=== PATIENT | female | born 1945 | race Caucasian/White ===

== ENCOUNTER → 2016-08-26 | Outpatient (CLI) | payer MEDICARE, OTHER ==
--- NOTE | 2016-08-27 13:56 | MM ---
Reason for exam: screening (asymptomatic). Last mammogram was performed 1 year ago. History: Patient is postmenopausal and is nulliparous. Family history of breast cancer in paternal aunt at age 50 and breast cancer in maternal aunt at age 60. Benign right mammotome panel of the right breast, September 27, 2005. Benign stereotactic core biopsy of the left breast, November 25, 2003. Benign excisional biopsy of the right breast, May 31, 1997. Physical Findings: A clinical breast exam by your physician is recommended on an annual basis and results should be correlated with mammographic findings. MG 3D Screening Mammo W/Cad Bilateral CC and MLO view(s) were taken. Prior study comparison: August 24, 2015, bilateral MG 3d screening mammo w/cad. There are scattered fibroglandular densities. Finding: There are typically benign coarse, diffuse calcifications in both breasts. Previous mammotome biopsy in the right breast. No significant changes in finding since August 24, 2015. ASSESSMENT: Benign, BI-RAD 2 RECOMMENDATION: Routine screening mammogram of both breasts in 1 year.
== END | disposition home or self-care (01) ==
LOC: RADMAMWWP 15:15
PROVIDERS: ATTEND Obstetrics & Gynecology
DX: Z12.31 Encounter for screening mammogram for malignant neoplasm of breast (principal)
CPT/HCPCS: 77063; G0202

== ENCOUNTER → 2017-11-13 | Outpatient (CLI) | payer MEDICARE ==
--- NOTE | 2017-11-17 10:03 | MM ---
Reason for exam: screening (asymptomatic). Last mammogram was performed 1 year and 3 months ago. History: Patient is postmenopausal and is nulliparous. Family history of breast cancer in paternal aunt at age 50 and breast cancer in maternal aunt at age 60. Benign right mammotome panel of the right breast, September 27, 2005. Benign stereotactic core biopsy of the left breast, November 25, 2003. Benign excisional biopsy of the right breast, May 31, 1997. Physical Findings: A clinical breast exam by your physician is recommended on an annual basis and results should be correlated with mammographic findings. MG 3D Screening Mammo W/Cad Bilateral CC and MLO view(s) were taken. Technologist: RT Christi (R)(M) Prior study comparison: August 26, 2016, bilateral MG 3d screening mammo w/cad. August 24, 2015, bilateral MG 3d screening mammo w/cad. There are scattered fibroglandular densities. No significant changes when compared with prior studies. ASSESSMENT: Benign, BI-RAD 2 RECOMMENDATION: Routine screening mammogram of both breasts in 1 year.
== END | disposition home or self-care (01) ==
LOC: RADMAMWWP 11:03
PROVIDERS: ATTEND Obstetrics & Gynecology
DX: Z12.31 Encounter for screening mammogram for malignant neoplasm of breast (principal)
CPT/HCPCS: 77063; 77067

== ENCOUNTER → 2018-01-06 | Outpatient (CLI) | payer MEDICARE ==
--- NOTE | 2018-01-06 17:25 | BD ---
EXAMINATION TYPE: Axial Bone Density DATE OF EXAM: 01/06/2018 COMPARISON: 11.23.2015 CLINICAL HISTORY: 72YR OLD PATIENT....ICD-10 CODE: Z13.820 SCREENING, M89.9 OSTEOPENIA Height: 65.4 Weight: 583 FRAX RISK QUESTIONS: Family History (Parent hip fracture): NO FXs Glucocorticoids (More than 3mos): TOPICAL ONLY RISK FACTORS HISTORY OF: HX OF BROKEN TOES AND FEET > AGE 52 Family History of Osteoporosis: YES, SISTER Active: NO....DIFFICULTY WALKING Diet low in dairy products/other sources of calcium: NO Postmenopausal woman: YES, AT AGE 57 YRS OLD Lost more than 2 inches in height since high school: YES Frequent falls: UNSTEADY MEDICATIONS: Additional Medications: STEROIDAL CREAM, FOR FLARE UPS, STATIN FOR CHOLESTEROL, CALCIUM AND VIT D, Additional History: SKIN RASHES EXAM MEASUREMENTS: Bone mineral densitometry was performed using the [employer] System. Bone mineral density as measured about the Lumbar spine is: ----- L1-L4(G/cm2): 1.231 T Score Values are as follows: ----- L1: 0.7 ----- L2: 0.2 ----- L3: -0.7 ----- L4: 1.2 ----- L1-L4: 0.4 Bone mineral density has: Increased 5.9% since study of: 11.23.2015 Bone mineral density about the R hip (g/cm2): 0.927 Bone mineral density about the L hip (g/cm2): 0.859 T Score values are as follows: -----R Neck: -0.3 -----L Neck: -2.1 -----R Total: -0.6 -----L Total: -1.2 Bone mineral density has: Increased 2.4% since study of: 11.23.2015 FRAX%s: THERE IS A 16.5% CHANCE OF A MAJOR OSTEOPOROTIC FX AND A 3.1% FOR HIP FX......PROBABILI TY OF FX IN 10 YRS TIME IMPRESSION: Osteopenia (T Score between -2.5 and -1). There is slightly increased risk of fracture and the patient may be considered for treatment. Re-Screen 2-5 years. NOTE: T-SCORE=SD OF THE YOUNG ADULT MEAN.
== END | disposition home or self-care (01) ==
LOC: RADBDWWP 14:57
PROVIDERS: ATTEND Obstetrics & Gynecology
DX: Z13.820 Encounter for screening for osteoporosis (principal); M89.9 Disorder of bone, unspecified; M85.80 Other specified disorders of bone density and structure, unspecified site
CPT/HCPCS: 77080

== ENCOUNTER → 2018-12-08 | Outpatient (CLI) | payer MEDICARE ==
--- NOTE | 2018-12-09 14:49 | MM ---
Reason for exam: screening (asymptomatic). Last mammogram was performed 1 year and 1 month ago. History: Patient is postmenopausal and is nulliparous. Family history of breast cancer in paternal aunt at age 50 and breast cancer in maternal aunt at age 60. Benign right mammotome panel of the right breast, September 27, 2005. Benign stereotactic core biopsy of the left breast, November 25, 2003. Benign excisional biopsy of the right breast, May 31, 1997. MG 3D Screening Mammo W/Cad Bilateral CC and MLO view(s) were taken. Prior study comparison: November 13, 2017, bilateral MG 3d screening mammo w/cad. August 26, 2016, bilateral MG 3d screening mammo w/cad. The breast tissue is heterogeneously dense. This may lower the sensitivity of mammography. There are benign-appearing bilateral breast calcifications. No suspicious abnormality. No significant new finding when compared to prior studies. ASSESSMENT: Benign, BI-RAD 2 RECOMMENDATION: Routine screening mammogram of both breasts in 1 year.
== END | disposition home or self-care (01) ==
LOC: RADMAMWWP 11:17
PROVIDERS: ATTEND Obstetrics & Gynecology
DX: Z12.31 Encounter for screening mammogram for malignant neoplasm of breast (principal)
CPT/HCPCS: 77063; 77067

== ENCOUNTER 2019-04-27 07:54 | Day surgery (SDC) | payer MEDICARE ==
[2019-04-23 13:30] VITALS: BMI 44.4
[~2019-04-27 07:54] MED LIST: LACTATED RINGERS 1,000 ML IV SCH; LIDOCAINE 1% 20 ML VIAL (10MG/ML) FOR IV START INTRADERMA PRN
[2019-04-27 08:30] VITALS: RESP 20; TEMP 97.8
[2019-04-27] MEDS ORDERED: PROPOFOL 10 MG/ML 20 ML VIAL IV ONE (08:46)
[2019-04-27] MEDS ORDERED: LIDOCAINE 1% INJ 10MG/ML (20 ML MDV) ONE (08:46)
--- NOTE | 2019-04-27 08:54 | P.GSHP ---
History of Present Illness H&P Date: 04/27/19 Chief Complaint: GERD, dysphagia Cyst 73-year-old female who presents today for EGD. Patient issues with some dysphagia and GERD. Past Medical History Past Medical History: GERD/Reflux, Hyperlipidemia Additional Past Medical History / Comment(s): HX OF POLYPS, feel like something stuck in throat,arthritis,scolosis History of Any Multi-Drug Resistant Organisms: None Reported Past Surgical History: Breast Surgery, Joint Replacement, Orthopedic Surgery, Tonsillectomy Additional Past Surgical History / Comment(s): EYE SX AT AGE 8, BREAST BX X2, DOMENICA KNEE REPLACEMENT, LEFT FOOT FUSED, LEFT SHOULDER REVERSE REPLACEMENT, rt shoulder replacement, cataracts domenica Past Anesthesia/Blood Transfusion Reactions: No Reported Reaction Past Psychological History: No Psychological Hx Reported Smoking Status: Never smoker Past Alcohol Use History: Rare Past Drug Use History: None Reported - Past Family History Father Family Medical History: Deep Vein Thrombosis (DVT) Medications and Allergies Home Medications Medication Instructions Recorded Confirmed Type Aspirin 81 mg PO DAILY 12/06/14 04/23/19 History Multivit-Min/FA/Lycopene/Lut 1 tab PO DAILY 12/06/14 04/23/19 History [Centrum Silver Tablet] Simvastatin 10 mg PO DAILY 12/06/14 04/23/19 History Calcium Carbonate/Vitamin D3 1 each PO BID 01/14/18 04/23/19 History [Calcium 600-Vit D3 400 Caplet] Cholecalciferol [Vitamin D3] 1,000 unit PO DAILY 01/14/18 04/23/19 History Cranberry Fruit Concentrate 500 mg PO DAILY 01/14/18 04/23/19 History [Cranberry] Glucosamine Sulfate 1,500 mg PO DAILY 01/14/18 04/23/19 History Magnesium Oxide [Mag-Ox] 250 mg PO DAILY 01/14/18 04/23/19 History [place]-3/Dha/Epa/Fish Oil [Fish Oil 1 each PO BID 01/14/18 04/23/19 History EC 1,200 mg Softgel] Allergies Allergy/AdvReac Type Severity Reaction Status Date / Time adhesive Allergy Rash/Hives Verified 04/23/19 13:21 lanolin Allergy Rash/Hives Verified 04/23/19 13:21 neomycin Allergy Rash/Hives Verified 04/23/19 13:21 nickel Allergy POSITIVE Verified 04/23/19 13:21 ON ALLERGY TEST Penicillins Allergy Unknown Verified 04/23/19 13:21 Childhood Surgical - Exam Vital Signs Temp Pulse Resp BP Pulse Ox 97.8 F 109 H 20 144/82 93 L 04/27/19 08:20 04/27/19 08:20 04/27/19 08:20 04/27/19 08:20 04/27/19 08:20 - General well developed, well nourished, no distress - Eyes PERRL - ENT normal pinna - Neck no masses - Respiratory normal expansion - Cardiovascular Rhythm: regular - Abdomen Abdomen: soft, non tender Assessment and Plan Assessment: GERD, dysphagia. We'll perform EGD
--- NOTE | 2019-04-27 09:02 | P.OP ---
Date of Procedure: 04/27/19 Preoperative Diagnosis: GERD Dysphagia Postoperative Diagnosis: Duodenitis Antral gastritis Esophagitis No significant hiatal hernia Procedure(s) Performed: EGD Anesthesia: MAC Surgeon: Audie Shi Pathology: other (Antrum, esophagus, duodenum) Condition: stable Disposition: PACU Description of Procedure: Patient's placed on the endoscopy table in the lateral position. She received IV sedation. The gastroscope placed oropharynx passed in the esophagus and into the stomach. Scope was then placed through the pylorus. The first and second portion of the duodenum appeared inflamed. Several biopsies of duodenum were performed. Scope summer back the antrum this. Mildly inflamed. A biopsies performed. Scope was unretroflexed and remainder of the stomach appeared normal. There is no significant hiatal hernia. The GE junction was at 47 is. The distal esophagus appeared mildly inflamed a biopsies performed. The proximal esophagus appeared normal. Scope was withdrawn for patient.
[2019-04-27 09:31] VITALS: BP 109/54; PULSE 76
== END 2019-04-27 09:39 | disposition home or self-care (01) ==
LOC: ORWHC2ENDO 07:54
PROVIDERS: ATTEND Surgery
DX: K21.0 Gastro-esophageal reflux disease with esophagitis (principal); K29.50 Unspecified chronic gastritis without bleeding; K29.80 Duodenitis without bleeding; E78.5 Hyperlipidemia, unspecified; Z86.010 Personal history of colon polyps; M19.90 Unspecified osteoarthritis, unspecified site; Z98.890 Other specified postprocedural states; Z90.89 Acquired absence of other organs; Z96.653 Presence of artificial knee joint, bilateral; Z79.82 Long term (current) use of aspirin; Z79.899 Other long term (current) drug therapy; Z91.048 Other nonmedicinal substance allergy status; Z88.8 Allergy status to other drugs, medicaments and biological substances; Z88.0 Allergy status to penicillin; Z88.1 Allergy status to other antibiotic agents
CPT/HCPCS: 88305; 88342; 43239; J2001; J2704

== ENCOUNTER 2019-10-28 06:30 | Day surgery (SDC) | payer MEDICARE ==
[2019-10-25 15:57] VITALS: BMI 43.0
[~2019-10-28 06:30] MED LIST changes: +LIDOCAINE 1% (10MG/ML) FOR IV START INTRADERMA PRN; -LIDOCAINE 1% 20 ML VIAL (10MG/ML) FOR IV START INTRADERMA PRN
[2019-10-28 07:02] VITALS: TEMP 97.6
[2019-10-28] MEDS ORDERED: PROPOFOL 10 MG/ML 20 ML VIAL IV ONE (07:39)
--- NOTE | 2019-10-28 07:46 | P.GSHP ---
History of Present Illness H&P Date: 10/28/19 Chief Complaint: GERD, gastritis This a 73-year-old female presents today for EGD. She's had issues with GERD and gastritis. Past Medical History Past Medical History: GERD/Reflux, Hyperlipidemia Additional Past Medical History / Comment(s): HX OF POLYPS, feel like something stuck in throat,arthritis,scolosis, dermatitis,lyme disease History of Any Multi-Drug Resistant Organisms: None Reported Past Surgical History: Breast Surgery, Joint Replacement, Orthopedic Surgery, Tonsillectomy Additional Past Surgical History / Comment(s): EYE SX AT AGE 8, BREAST BX X2, DOMENICA KNEE REPLACEMENT, LEFT FOOT FUSED, LEFT SHOULDER REVERSE REPLACEMENT, rt shoulder replacement, cataracts domenica Past Anesthesia/Blood Transfusion Reactions: No Reported Reaction Smoking Status: Never smoker - Past Family History Father Family Medical History: Deep Vein Thrombosis (DVT) Medications and Allergies Home Medications Medication Instructions Recorded Confirmed Type Aspirin 81 mg PO HS 12/06/14 10/25/19 History Multivit-Min/FA/Lycopene/Lut 1 tab PO DAILY 12/06/14 10/25/19 History [Centrum Silver Tablet] Simvastatin 10 mg PO DAILY 12/06/14 10/25/19 History Calcium Carbonate/Vitamin D3 1 each PO DAILY 01/14/18 10/25/19 History [Calcium 600-Vit D3 400 Caplet] Cholecalciferol [Vitamin D3] 1,000 unit PO DAILY 01/14/18 10/25/19 History Cranberry Fruit Concentrate 500 mg PO DAILY 01/14/18 10/25/19 History [Cranberry] Glucosamine Sulfate 1,500 mg PO DAILY 01/14/18 10/25/19 History Magnesium Oxide [Mag-Ox] 250 mg PO BID 01/14/18 10/25/19 History [place]-3/Dha/Epa/Fish Oil [Fish Oil 1 each PO BID 01/14/18 10/25/19 History EC 1,200 mg Softgel] Melatonin 10 mg PO DAILY 10/25/19 10/25/19 History Allergies Allergy/AdvReac Type Severity Reaction Status Date / Time adhesive Allergy Rash/Hives Verified 10/28/19 06:52 lanolin Allergy Rash/Hives Verified 10/28/19 06:52 neomycin Allergy Rash/Hives Verified 10/28/19 06:52 nickel Allergy POSITIVE Verified 10/28/19 06:52 ON ALLERGY TEST Penicillins Allergy Unknown Verified 10/28/19 06:52 Childhood Surgical - Exam Vital Signs Temp Pulse Resp BP Pulse Ox 97.6 F 81 16 132/68 94 L 10/28/19 07:01 10/28/19 07:01 10/28/19 07:01 10/28/19 07:01 10/28/19 07:01 - General well developed, well nourished, no distress - Eyes PERRL - ENT normal pinna - Neck no masses - Respiratory normal expansion - Cardiovascular Rhythm: regular - Abdomen Abdomen: soft, non tender Assessment and Plan Assessment: GERD, gastritis. We'll perform EGD
--- NOTE | 2019-10-28 07:52 | P.OP ---
Date of Procedure: 10/28/19 Preoperative Diagnosis: GERD Gastritis Postoperative Diagnosis: Antral gastritis Mild esophagitis No evidence of hiatal hernia Procedure(s) Performed: EGD Anesthesia: MAC Surgeon: Audie Shi Pathology: other (Antrum, esophagus) Condition: stable Disposition: PACU Description of Procedure: The patient's placed on the endoscopy table lateral position. C IV sedation. The gastroscope placed oropharynx and passed in the esophagus and stomach. Scope was then placed through the pylorus. The first and second portion of the duodenum appeared normal. Scope summer back the antrum was mildly inflamed. A biopsies performed. The scope was unretroflexed and remainder of the stomach appeared normal. There is no significant hiatal hernia. The GE junction was at 40 cm. The distal esophagus appeared mildly inflamed. The proximal this was biopsied. The proximal esophagus appeared normal. Scope was withdrawn for patient.
[2019-10-28 08:11] VITALS: BP 121/63; PULSE 78; RESP 18
== END 2019-10-28 08:32 | disposition home or self-care (01) ==
LOC: ORWHC2ENDO 06:30
PROVIDERS: ATTEND Surgery
DX: K29.50 Unspecified chronic gastritis without bleeding (principal); K21.0 Gastro-esophageal reflux disease with esophagitis; E78.5 Hyperlipidemia, unspecified; M19.90 Unspecified osteoarthritis, unspecified site; M41.9 Scoliosis, unspecified; L30.9 Dermatitis, unspecified; M24.675 Ankylosis, left foot; Z86.010 Personal history of colon polyps; Z86.19 Personal history of other infectious and parasitic diseases; Z98.890 Other specified postprocedural states; Z96.653 Presence of artificial knee joint, bilateral; Z90.89 Acquired absence of other organs; Z96.611 Presence of right artificial shoulder joint; Z98.41 Cataract extraction status, right eye; Z98.42 Cataract extraction status, left eye; Z79.82 Long term (current) use of aspirin; Z79.899 Other long term (current) drug therapy; Z91.09 Other allergy status, other than to drugs and biological substances; Z88.1 Allergy status to other antibiotic agents; Z91.048 Other nonmedicinal substance allergy status; Z88.0 Allergy status to penicillin; Z82.49 Family history of ischemic heart disease and other diseases of the circulatory system
CPT/HCPCS: 88305; 43239; J2704

== ENCOUNTER → 2020-01-19 | Outpatient (CLI) | payer MEDICARE ==
--- NOTE | 2020-01-20 10:18 | MM ---
Reason for exam: screening (asymptomatic). Last mammogram was performed 1 year and 1 month ago. History: Patient is postmenopausal and is nulliparous. Family history of breast cancer in paternal aunt at age 50 and breast cancer in maternal aunt at age 60. Benign right mammotome panel of the right breast, September 27, 2005. Benign stereotactic core biopsy of the left breast, November 25, 2003. Benign excisional biopsy of the right breast, May 31, 1997. Physical Findings: A clinical breast exam by your physician is recommended on an annual basis and results should be correlated with mammographic findings. MG 3D Screening Mammo W/Cad Bilateral CC and MLO view(s) were taken. Prior study comparison: December 08, 2018, bilateral MG 3d screening mammo w/cad. November 13, 2017, bilateral MG 3d screening mammo w/cad. The breast tissue is heterogeneously dense. This may lower the sensitivity of mammography. Stable benign calcifications. There is no discrete abnormality. No significant changes when compared with prior studies. ASSESSMENT: Benign, BI-RAD 2 RECOMMENDATION: Routine screening mammogram of both breasts in 1 year.
== END | disposition home or self-care (01) ==
LOC: RADMAMWWP 13:31
PROVIDERS: ATTEND Obstetrics & Gynecology
DX: Z12.31 Encounter for screening mammogram for malignant neoplasm of breast (principal)
CPT/HCPCS: 77063; 77067

== ENCOUNTER → 2020-01-21 | Outpatient (CLI) | payer MEDICARE ==
--- NOTE | 2020-01-21 15:10 | BD ---
EXAMINATION TYPE: Axial Bone Density DATE OF EXAM: 01/21/2020 COMPARISON: 01.06.2018 CLINICAL HISTORY: 74 YR OLD FEMALE....ICD-10 CODE: M89.9 DISORDER OF BONE Height: 65.3 Weight: 269 FRAX RISK QUESTIONS: Family History (Parent hip fracture): YES Glucocorticoids (More than 3mos): YES (Ex: prednisone, prednisolone, methylprednisolone, dexamethasone, and hydrocortisone). History of Fracture in Adulthood: YES RISK FACTORS HISTORY OF: HX OF FOOT AND TOE FRACTURES >40 YRS OLD Family History of Osteoporosis: YES, SISTER X2...WITH FRACTURES Postmenopausal woman: YES, AT AGE 56 Lost more than 2 inches in height since high school: YES Frequent falls: UNSTEADY Poor Health: VERY ARTHRITIC AND MULTIPLE JOINT REPLACEMENTS Hyperparathyroidism: NO Adrenal Insufficiency: NO MEDICATIONS: Prednisone or other steroids: STEROIDAL CLOBETASOL FOR MANY YRS Additional Medications: BP MEDS, CHOLESTEROL MEDS, REFLUX MEDS, VIT D AND CALCIUM, AND CENTRUM SILVE R Additional History: BILAT TKR AND BILAT TSR, AND SCREWS AND PLATES IN FOOT, SCOLIOSIS, WITH ARTHRITIS , CHOLESTEROL, REFLUX AND CHOLESTEROL EXAM MEASUREMENTS: Bone mineral densitometry was performed using the [employer] System. Bone mineral density as measured about the Lumbar spine is: ----- L1-L4(G/cm2): 1.216 T Score Values are as follows: ----- L1: 1.3 ----- L2: -1.1 ----- L3: -1.0 ----- L4: 1.5 ----- L1-L4: 0.3 Bone mineral density has: Decreased -3.6% since study of: 01.06.2018 Bone mineral density about the R hip (g/cm2): 0.784 Bone mineral density about the L hip (g/cm2): 0.820 T Score values are as follows: -----R Neck: 0.1 -----L Neck: -1.4 -----R Total: -1.8 -----L Total: -1.5 Bone mineral density has: Decreased -10.2% since study of: 01.06.2018 FRAX%s: THERE IS A 21.2% FOR MAJOR OSTEOPOROTIC FX AND 3.4% CHANCE FOR HIP....PROBABILITY FOR FX IN 10 YRS TIME IMPRESSION: Osteopenia (T Score between -2.5 and -1). There is slightly increased risk of fracture and the patient may be considered for treatment. Re-Screen 2-5 years. NOTE: T-SCORE=SD OF THE YOUNG ADULT MEAN.
== END | disposition home or self-care (01) ==
LOC: RADBDWWP 13:24
PROVIDERS: ATTEND Obstetrics & Gynecology
DX: M85.80 Other specified disorders of bone density and structure, unspecified site (principal)
CPT/HCPCS: 77080

== ENCOUNTER → 2021-01-23 | Outpatient (CLI) | payer MEDICARE ==
--- NOTE | 2021-01-25 13:46 | MM ---
Reason for exam: screening (asymptomatic). Last mammogram was performed 1 year ago. History: Patient is postmenopausal and is nulliparous. Family history of breast cancer in paternal aunt at age 50 and breast cancer in maternal aunt at age 60. Benign right mammotome panel of the right breast, September 27, 2005. Benign stereotactic core biopsy of the left breast, November 25, 2003. Benign excisional biopsy of the right breast, May 31, 1997. Physical Findings: A clinical breast exam by your physician is recommended on an annual basis and results should be correlated with mammographic findings. MG 3D Screening Mammo W/Cad Bilateral CC and MLO view(s) were taken. Prior study comparison: January 19, 2020, bilateral MG 3d screening mammo w/cad. December 08, 2018, bilateral MG 3d screening mammo w/cad. November 13, 2017, bilateral MG 3d screening mammo w/cad. Finding: There is a suspicious equal density (isodense), spiculated architectural distortion in the inner quadrant of the right breast. Previous mammotome biopsy in the right breast. Focal asymmetry bilaterally. New finding since January 19, 2020, December 08, 2018, and November 13, 2017. ASSESSMENT: Incomplete: need additional imaging evaluation, BI-RAD 0 RECOMMENDATION: Special view mammogram of the right breast. If lesion persists on supplemental views, image directed ultrasound is recommended. [facility] will attempt to contact patient to return for supplemental views and ultrasound if indicated.
== END | disposition home or self-care (01) ==
LOC: RADMAMWWP 16:03
PROVIDERS: ATTEND Obstetrics & Gynecology
DX: Z12.31 Encounter for screening mammogram for malignant neoplasm of breast (principal); Z78.0 Asymptomatic menopausal state; Z80.3 Family history of malignant neoplasm of breast
CPT/HCPCS: 77063; 77067

== ENCOUNTER → 2021-02-07 | Outpatient (CLI) | payer MEDICARE ==
--- NOTE | 2021-02-08 10:41 | MM ---
Reason for exam: additional evaluation requested from abnormal screening. Last mammogram was performed less than 1 month ago. History: Patient is postmenopausal and is nulliparous. Family history of breast cancer in paternal aunt at age 50 and breast cancer in maternal aunt at age 60. Benign right mammotome panel of the right breast, September 27, 2005. Benign stereotactic core biopsy of the left breast, November 25, 2003. Benign excisional biopsy of the right breast, May 31, 1997. Physical Findings: Nurse did not find any significant physical abnormalities on exam. MG 3D Work Up W/Cad RT Spot compression CC, spot compression MLO, and LM view(s) were taken of the right breast. Prior study comparison: January 23, 2021, bilateral MG 3d screening mammo w/cad. January 19, 2020, bilateral MG 3d screening mammo w/cad. There is no discrete abnormality including area of concern. Likely post operative changes. These results were verbally communicated with the patient and result sheet given to the patient on 02/07/21. ASSESSMENT: Benign, BI-RAD 2 RECOMMENDATION: Return to routine screening mammogram schedule for both breasts.
== END | disposition home or self-care (01) ==
LOC: RADMAMWWP 14:53
PROVIDERS: ATTEND Obstetrics & Gynecology
DX: R92.8 Other abnormal and inconclusive findings on diagnostic imaging of breast (principal); Z80.3 Family history of malignant neoplasm of breast; Z78.0 Asymptomatic menopausal state
CPT/HCPCS: 77065; G0279; 77061

== ENCOUNTER 2021-04-03 07:21 | Day surgery (SDC) | payer MEDICARE ==
[2021-03-30 11:03] VITALS: BMI 43.0
[~2021-04-03 07:21] MED LIST changes: -LACTATED RINGERS 1,000 ML IV SCH
[2021-04-03] MEDS: LACTATED RINGERS 1,000 ML IV SCH ×2 (07:52→08:20)
[2021-04-03 07:57] VITALS: TEMP 96
[2021-04-03] MEDS ORDERED: PROPOFOL 10 MG/ML 20 ML VIAL IV ONE (08:21)
--- NOTE | 2021-04-03 08:42 | P.PCN ---
Date of Procedure: 04/03/21 Procedure(s) Performed: BRIEF HISTORY: Patient is a 75-year-old pleasant white female scheduled for an elective colonoscopy as a part of the lesion of prior history of colon polyps. PROCEDURE PERFORMED: Colonoscopy. PREOPERATIVE DIAGNOSIS: History of colon polyps. IV sedation per Anesthesia. PROCEDURE: After informed consent was obtained, the patient, was brought into the endoscopy unit. IV sedation was administered by Anesthesia under continuous monitoring. Digital rectal examination was normal. Initially the Olympus CF-160 flexible video colonoscope was then inserted in the rectum, gradually advanced into the cecum without any difficulty. Careful examination was performed as the scope was gradually being withdrawn. Ileocecal valve and the appendiceal orifice were visualized and appeared normal. Prep was excellent. Mucosa of the cecum, ascending colon, transverse colon, descending colon, appeared normal. In the sigmoid colon there was evidence of acute sigmoid diverticulitis in 1 of the diverticulum with mucosal erythema and mild purulent material noted. There were scattered sigmoid diverticula seen. Rest of the sigmoid colon, and rectum appeared normal. Retroflexion was performed in the rectum and no lesions were seen. The patient tolerated the procedure well. IMPRESSION: Sigmoid diverticulitis Scattered sigmoid diverticulosis No evidence of colorectal neoplasia RECOMMENDATIONS: Findings of this examination were discussed with the patientas well as her family. She will be be started on antibiotics with Cipro and Flagyl for 1 week for acute sigmoid diverticulitis. She was advised to have a repeat surveillance colonoscopy in 5 years from now because of the prior history of colon polyps].
[2021-04-03 09:14] VITALS: BP 122/76; PULSE 80; RESP 20
== END 2021-04-03 09:34 | disposition home or self-care (01) ==
LOC: ORWHC2ENDO 07:21
PROVIDERS: ATTEND Internal Medicine Gastroenterology
DX: Z12.11 Encounter for screening for malignant neoplasm of colon (principal); K57.32 Diverticulitis of large intestine without perforation or abscess without bleeding; K57.30 Diverticulosis of large intestine without perforation or abscess without bleeding; Z86.010 Personal history of colon polyps; I10 Essential (primary) hypertension; E78.5 Hyperlipidemia, unspecified; K21.9 Gastro-esophageal reflux disease without esophagitis; Z79.899 Other long term (current) drug therapy
CPT/HCPCS: J2704; G0105; 45378

== ENCOUNTER → 2022-03-04 | Outpatient (CLI) | payer MEDICARE ==
--- NOTE | 2022-03-04 14:54 | BD ---
EXAMINATION TYPE: Axial Bone Density DATE OF EXAM: 03/04/2022 COMPARISON: 01-21-20 CLINICAL HISTORY: 76 years year old Female. ICD-10 CODE: M8588 OTHER DISORDER OF BONE DEN Height: 66IN Weight: 274LB FRAX RISK QUESTIONS: Family History (Parent hip fracture): YES Glucocorticoids (More than 3mos): YES (Ex: prednisone, prednisolone, methylprednisolone, dexamethasone, and hydrocortisone). History of Fracture in Adulthood: YES Secondary Osteoporosis: RISK FACTORS HISTORY OF: Family History of Osteoporosis: YES Active: MODERATE Postmenopausal woman: YES Lost more than 2 inches in height since high school: YES Frequent falls: YES Poor Health: MODERATELY GOOD MEDICATIONS: Prednisone or other steroids: STEROID CREAM How Long: MANY YEARS Additional Medications: OMEGA VITAMINS, CHOLESTEROL MEDS, CALCIUM Additional History: SCOLIOSIS EXAM MEASUREMENTS: Bone mineral densitometry was performed using the [employer] System. Bone mineral density as measured about the Lumbar spine is: ----- L1-L4(G/cm2): 1.219 T Score Values are as follows: ----- L1: 1.4 ----- L2: -0.6 ----- L3: -0.6 ----- L4: 1.0 ----- L1-L4: 0.3 Bone mineral density has: Decreased -0.2% since study of: 01-21-20 Bone mineral density about the R hip (g/cm2): 0.748 Bone mineral density about the L hip (g/cm2): 0.781 T Score values are as follows: -----R Neck: -0.9 -----L Neck: -1.8 -----R Total: -2.1 -----L Total: -1.8 Bone mineral density has: Decreased -4.7% since study of: 01-21-20 FRAX%s: The graph provided illustrates a 36.9% chance for a major osteoporotic fx and a 19.0% chance for the hips probability for fx in 10 years time. IMPRESSION: Osteopenia (T Score between -2.5 and -1). There is slightly increased risk of fracture and the patient may be considered for treatment. Re-Screen 2-5 years. NOTE: T-SCORE=SD OF THE YOUNG ADULT MEAN.
--- NOTE | 2022-03-05 08:56 | MM ---
Reason for Exam: Screening (asymptomatic). Last mammogram was performed 1 year(s) and 1 month(s) ago. Patient History: Menarche at age 14. Patient has no children. Postmenopausal. 09/27/2005, Benign Core Biopsy on the right side. 11/25/2003, Benign Stereotactic Core Biopsy on the left side. 05/31/1997, Benign Excisional Biopsy on the right side. Paternal aunt had breast cancer, age 50. Maternal aunt had breast cancer, age 60. Risk Values: Fide 5 year model risk: 2.9%. NCI Lifetime model risk: 6.7%. Prior Study Comparison: 01/19/2020 Bilateral Screening Mammogram, [facility]. 01/23/2021 Bilateral Screening Mammogram, [facility]. 02/07/2021 Right Diagnostic Mammogram, [facility]. Tissue Density: There are scattered fibroglandular densities. Findings: Analyzed By CAD. Microclip lateral left breast from prior biopsy. Scattered grouped microcalcifications are unchanged. Subareolar focal asymmetry 12:00 right breast is unchanged. Additional areas of asymmetric density are similar to prior exams as well. No significant change from prior exams. Overall Assessment: Benign, BI-RAD 2 Management: Screening Mammogram of both breasts in 1 year. 1. Patient should continue monthly self breast exams. 2. A clinical breast exam by your physician is recommended on an annual basis. 3. This exam should not preclude additional follow-up of suspicious palpable abnormalities. Electronically signed and approved by: Christi Jaramillo M.D. Radiologist
== END | disposition home or self-care (01) ==
LOC: RADMAMWWP 13:19
PROVIDERS: ATTEND Obstetrics & Gynecology
DX: Z12.31 Encounter for screening mammogram for malignant neoplasm of breast (principal); M85.89 Other specified disorders of bone density and structure, multiple sites; Z78.0 Asymptomatic menopausal state; Z80.3 Family history of malignant neoplasm of breast
CPT/HCPCS: 77063; 77067; 77080

== ENCOUNTER → 2022-03-04 | Outpatient (CLI) | payer MEDICARE | END | disposition home or self-care (01) | LOC: RADMAMWWP 13:23 | PROVIDERS: ATTEND Obstetrics & Gynecology | DX: Z53.9 Procedure and treatment not carried out, unspecified reason (principal) ==

== ENCOUNTER → 2023-03-06 | Outpatient (CLI) | payer MEDICARE ==
--- NOTE | 2023-03-07 07:25 | MM ---
Reason for Exam: Screening (asymptomatic). Last screening mammogram was performed 12 month(s) ago. Patient History: Menarche at age 14. Patient has no children. Postmenopausal. 09/27/2005, Benign Core Biopsy on the right side. 11/25/2003, Benign Stereotactic Core Biopsy on the left side. 05/31/1997, Benign Excisional Biopsy on the right side. Paternal aunt had breast cancer, age 50. Maternal aunt had breast cancer, age 60. Risk Values: Fide 5 year model risk: 2.9%. NCI Lifetime model risk: 6.3%. Prior Study Comparison: 01/23/2021 Bilateral Screening Mammogram, [facility]. 02/07/2021 Right Diagnostic Mammogram, [facility]. 03/04/2022 Bilateral MG 3D screening mammo w/cad, [facility]. Tissue Density: There are scattered fibroglandular densities. Findings: Analyzed By CAD. There is no suspicious group of microcalcifications or new suspicious mass in either breast. Subareolar focal asymmetry within the right breast is unchanged. Scattered grouped microcalcifications are unchanged bilaterally. By screws within both breasts. Overall Assessment: Benign, BI-RAD 2 Management: Screening Mammogram of both breasts in 1 year. A clinical breast exam by your physician is recommended on an annual basis and results should be correlated with mammographic findings. Note on Fide scores and lifetime risk: 1. A Fide score greater than 3% is considered moderate risk. If this is the case, consider specialist referral to assess eligibility for a risk reducing agent. If overall lifetime risk for the development of breast cancer is 20% or higher, the patient may qualify for future screening with alternating mammogram and breast MRI. Electronically signed and approved by: Ej Gay D.O.
== END | disposition home or self-care (01) ==
LOC: RADMAMWWP 13:36
PROVIDERS: ATTEND Obstetrics & Gynecology
DX: Z12.31 Encounter for screening mammogram for malignant neoplasm of breast (principal); Z78.0 Asymptomatic menopausal state; Z80.3 Family history of malignant neoplasm of breast
CPT/HCPCS: 77063; 77067

== ENCOUNTER → 2024-03-25 | Outpatient (CLI) | payer MEDICARE ==
--- NOTE | 2024-03-27 15:58 | MM ---
Reason for Exam: Screening (asymptomatic). Last mammogram was performed 1 year(s) and 1 month(s) ago. Patient History: Menarche at age 14. Patient has no children. Postmenopausal. 09/27/2005, Benign Core Biopsy on the right side. 11/25/2003, Benign Stereotactic Core Biopsy on the left side. 05/31/1997, Benign Excisional Biopsy on the right side. Paternal aunt had breast cancer, age 50. Maternal aunt had breast cancer, age 60. Risk Values: Fide 5 year model risk: 2.9%. NCI Lifetime model risk: 5.9%. Prior Study Comparison: 02/07/2021 Right Diagnostic Mammogram, [facility]. 03/04/2022 Bilateral MG 3D screening mammo w/cad, [facility]. 03/06/2023 Bilateral MG 3D screening mammo w/cad, [facility]. Tissue Density: There are scattered areas of fibroglandular density. Findings: Analyzed By CAD. The pattern is symmetrical. Multiple grouped round calcifications appear stable in the subareolar right breast. There are couple of loops of coarse calcifications within the outer right breast. Focal asymmetries in the subareolar right breast. There is focal asymmetry in the outer left breast. No significant interval changes. Core markers within the right breast. No suspicious groups of microcalcifications, spiculated or lobular masses, architectural distortion or other secondary signs of malignancy are mammographically apparent. Overall Assessment: Benign, BI-RAD 2 Management: Screening Mammogram of both breasts in 1 year. A negative mammogram report should not preclude additional follow up of suspicious palpable abnormalities. Patient should continue monthly self breast exam. A clinical breast exam by your physician is recommended on an annual basis and results should be correlated with mammographic findings. Note on Fide scores and lifetime risk: 1. A Fide score greater than 3% is considered moderate risk. If this is the case, consider specialist referral to assess eligibility for a risk reducing agent. 2. If overall lifetime risk for the development of breast cancer is 20% or higher, the patient may qualify for future screening with alternating mammogram and breast MRI. [facility], , 03/27/2024 3:55 PM. Electronically signed and approved by: Fabián Martinez D.O. Radiologis
--- NOTE | 2024-03-28 22:26 | BD ---
EXAMINATION TYPE: Axial Bone Density DATE OF EXAM: 03/25/2024 CLINICAL HISTORY: 78 years old Female. ICD-10 CODE: M85.80DB , Additional History: Height: 66 Weight: 277 FRAX RISK QUESTIONS: Alcohol (3 or more units per day): no Family History (Parent hip fracture): yes Glucocorticoids (More than 3mos): yes (Ex: prednisone, prednisolone, methylprednisolone, dexamethasone, and hydrocortisone). History of Fracture in Adulthood: yes Secondary Osteoporosis: 1. Type 1 Diabetes: no 2. Hyperthyroidism: no 3. Menopause before 45: no 4. Malnutrition: no 5. Chronic liver disease: no Rheumatoid Arthritis: no Current Tobacco Use: no RISK FACTORS HISTORY OF: Surgery to Spine/Hip(right/left)/Wrist (right/left): no EXAM MEASUREMENTS: Bone mineral densitometry was performed using the [employer] System. Bone mineral density as measured about the Lumbar spine is: ----- L1-L4(G/cm2): 1.158 T Score Values are as follows: ----- L1: 0.6 ----- L2: 1.4 ----- L3: -0.5 ----- L4: 0.3 ----- L1-L4: -0.2 Z Score Values are as follows: ----- L1: 1.2 ----- L2: -0.8 ----- L3: 0.1 ----- L4: 0.9 ----- L1-L4: 0.4 Bone mineral density has: decreased-5.8 % since study of: 03.04.2022 Bone mineral density about the R hip (g/cm2): 0.881 Bone mineral density about the L hip (g/cm2): 0.739 T Score values are as follows: -----R Neck: -0.9 -----L Neck: -2.5 -----R Total: -1.0 -----L Total: -2.1 Z Score values are as follows: -----R Neck: 0.3 -----L Neck: -1.3 -----R Total: 0.0 -----L Total: -1.2 Bone mineral density has: increased 6.0 % since study of: 03.04.2022 FRAX%s: The graph provided illustrates a 52.8% chance for a major osteoporotic fx and a 37.5% chance for the hips probability for fx in 10 years time. IMPRESSION: Osteopenia (T Score between -2.5 and -1). There is slightly increased risk of fracture and the patient may be considered for treatment. Re-Screen 2-5 years. NOTE: T-SCORE=SD OF THE YOUNG ADULT MEAN. [facility], , 03/28/2024 10:24 PM
== END | disposition home or self-care (01) ==
LOC: RADMAMWWP 15:57
PROVIDERS: ATTEND Family Medicine
DX: Z12.31 Encounter for screening mammogram for malignant neoplasm of breast (principal); M85.80 Other specified disorders of bone density and structure, unspecified site; Z78.0 Asymptomatic menopausal state; Z80.3 Family history of malignant neoplasm of breast; R92.323 Mammographic fibroglandular density, bilateral breasts
CPT/HCPCS: 77063; 77067; 77080

== ENCOUNTER 2024-11-09 08:33 | Day surgery (SDC) | payer MEDICARE ==
[2024-11-08 11:07] VITALS: BMI 43.8
[~2024-11-09 08:33] MED LIST changes: +ONDANSETRON 4 MG/2 ML VIAL IVP PRN
[2024-11-09] MEDS: IV FLUID CONTINUATION 1,000 ML IV ONE (09:18)
[2024-11-09 09:25] VITALS: RESP 16; TEMP 97.5
[2024-11-09] MEDS: LACTATED RINGERS 1,000 ML IV SCH (09:35)
[2024-11-09] MEDS ORDERED: PROPOFOL 10 MG/ML 20 ML VIAL IV ONE (10:09)
--- NOTE | 2024-11-09 10:20 | P.PCN ---
Date of Procedure: 11/09/24 Procedure(s) Performed: BRIEF HISTORY: Patient is a 79-year-old, pleasant, white female scheduled for an upper endoscopy as a part of evaluation of intermittent dysphagia to solids for the last 6 months duration. She denies any heartburn. No recent weight loss. PROCEDURE PERFORMED: Esophagogastroduodenoscopy with biopsy and dilation. PREOPERATIVE DIAGNOSIS: Intermittent dysphagia to solids. IV sedation per anesthesia. PROCEDURE: After informed consent was obtained, the patient was brought into the endoscopy unit. IV sedation was administered by Anesthesia under continuous monitoring. Initially the Olympus GIF-140 video endoscope was inserted into the mouth. Esophagus intubated without any difficulty. It was gradually advanced into the stomach and duodenum and carefully examined. The bulb and the second part of the duodenum appeared normal. The scope at this time was withdrawn to the stomach, adequately insufflated with air, and upon careful examination, mucosa of the antrum, especially as of edema concern for gastritis and biopsies were done from this area. Mucosa body, cardia and the fundus appeared normal. The scope was then withdrawn into the esophagus. Small hiatal hernia noted. The GE junction was located at 39 cm from the incisors. There was a distal esophageal Schatzki's ring identified that was dilated using 20 mm TTS balloon for 30 seconds. The rest of the esophagus appeared normal. There were no erosions or ulcerations seen, biopsies were done from the distal esophagus and the patient tolerated the procedure well. IMPRESSION: 1. Widely patent distal esophageal Schatzki's ring status post balloon dilation using 20 mm TTS balloon. 2. Small hiatal hernia. 2. Mild antral gastritis RECOMMENDATIONS: The findings of this examination were discussed with the patient as well as her family. She was advised to be on clear liquids for 2 hours. Continue with omeprazole 20 mg daily and follow antireflux measures.. If she has persistent dysphagia, she was advised to follow-up in the office for further management.
[2024-11-09 11:24] VITALS: BP 108/65; PULSE 59
== END 2024-11-09 11:15 ==
LOC: ORWHC2ENDO 08:33
PROVIDERS: ATTEND Internal Medicine Gastroenterology
DX: K29.50 Unspecified chronic gastritis without bleeding (principal); K22.2 Esophageal obstruction; K44.9 Diaphragmatic hernia without obstruction or gangrene; K21.00 Gastro-esophageal reflux disease with esophagitis, without bleeding; E78.5 Hyperlipidemia, unspecified; I10 Essential (primary) hypertension; M19.90 Unspecified osteoarthritis, unspecified site; Z79.899 Other long term (current) drug therapy; Z88.0 Allergy status to penicillin; Z88.8 Allergy status to other drugs, medicaments and biological substances; Z88.1 Allergy status to other antibiotic agents; Z91.048 Other nonmedicinal substance allergy status
CPT/HCPCS: 88305; 43239; 43249; J2704; C1726